=== PATIENT | female | born 1990 | race Hispanic/Latino ===

== ENCOUNTER 2017-01-27 10:52 | Emergency (ER) | payer BC ==
[2017-01-27 11:06] VITALS: RESP 18; TEMP 98.3; O2SAT 100
--- NOTE | 2017-01-27 12:05 | ED PDOC ---
HPI: Chest Pain Time Seen by Provider: 01/27/17 11:06 Chief Complaint (Nursing): Chest Pain History Per: Patient Onset/Duration Of Symptoms: Days (2) Current Symptoms Are (Timing): Still Present Severity: Moderate Pain Scale Rating Of: 3 Quality: Sharp Exacerbating Factors: Deep Breathing Additional Complaint(s): Sharp right sided chest pain radiating to right shoulder x 2 days. Worse on inspiration. Scant nonproductive cough. No SOB or fever. Past Medical History Vital Signs: Last Vital Signs Temp 98.3 F 01/27/17 10:59 Pulse 69 01/27/17 12:35 Resp 18 01/27/17 10:59 BP 127/74 01/27/17 12:35 Pulse Ox 100 01/27/17 12:05 - Medical History PMH: Asthma - Family History Family History: States: Unknown Family Hx - Home Medications Home Medications: Ambulatory Orders Medication Instructions Recorded Azithromycin [Zithromax] 250 mg PO DAILY #6 tab 01/27/17 predniSONE [predniSONE Tab] 10 mg PO TID #15 tab 01/27/17 - Allergies Allergies/Adverse Reactions: Allergies Allergy/AdvReac Type Severity Reaction Status Date / Time No Known Allergies Allergy Verified 01/27/17 10:59 Review of Systems Constitutional: Negative for: Fever Cardiovascular: Positive for: Chest Pain Respiratory: Positive for: Cough. Negative for: Shortness of Breath Musculoskeletal: Positive for: Shoulder Pain Physical Exam - Physical Exam Appears: Positive for: Non-toxic, No Acute Distress Skin: Positive for: Normal Color, Warm, DRY Cardiovascular/Chest: Positive for: Regular Rate, Rhythm Respiratory: Positive for: CNT, Normal Breath Sounds Extremity: Positive for: Normal ROM. Negative for: Tenderness, Swelling - ECG O2 Sat by Pulse Oximetry: 100 Disposition - Clinical Impression Clinical Impression: Bronchitis - Patient ED Disposition Is Patient to be Admitted: No Counseled Patient/Family Regarding: Studies Performed, Diagnosis, Need For Followup, Rx Given - Disposition Referrals: [facility] [Outside] Disposition: Routine/Home Disposition Time: 12:52 Condition: FAIR Prescriptions: Azithromycin [Zithromax] 250 mg PO DAILY #6 tab predniSONE [predniSONE Tab] 10 mg PO TID #15 tab Instructions: Acute Bronchitis (ED) Forms: [employer] (Faroese)
[2017-01-27 12:42] VITALS: BP 127/74; PULSE 69
== END 2017-01-27 13:20 | disposition home or self-care (01) ==
LOC: H.ER 10:52
DX: J40 Bronchitis, not specified as acute or chronic (principal); J45.909 Unspecified asthma, uncomplicated